=== PATIENT | male | born 1970 | race Caucasian/White ===

== ENCOUNTER 2023-10-08 13:25 | Emergency (ER) | payer BC ==
[~2023-10-08] VITALS: Ht 172.7 cm; Wt 84.4 kg
[2023-10-08 13:50] VITALS: BP 118/82; PULSE 69; RESP 18; TEMP 98.1; O2SAT 97
[2023-10-08] MEDS: KETOROLAC 30 MG/ML VIAL IM ONE (14:32)
[2023-10-08] MEDS: LIDOCAINE 5% 1 EA PATCH TP ONE (14:33)
[2023-10-08] MEDS ORDERED: NAPR-337 PO (15:06)
[2023-10-08] MEDS ORDERED: LID5T TP (15:06)
[2023-10-08] MEDS ORDERED: CYCL-711 PO (15:06)
== END 2023-10-08 15:11 | disposition home or self-care (01) ==
LOC: MED 13:25
DX: S00.83XA Contusion of other part of head, initial encounter (principal); M54.50 Low back pain, unspecified; Z79.899 Other long term (current) drug therapy; V19.88XA Pedal cyclist (driver) (passenger) injured in other specified transport accidents, initial encounter; Y93.89 Activity, other specified; Y92.89 Other specified places as the place of occurrence of the external cause; Y99.8 Other external cause status
CPT/HCPCS: 96372; 99283; J1885